=== PATIENT | male | born 1950 | race Caucasian/White ===

== ENCOUNTER 2018-01-06 13:44 | Emergency (ER) | payer OTHER, MEDICARE ==
[2018-01-06 13:51] VITALS: BP 140/95
--- NOTE | 2018-01-06 13:56 | EDPHY ---
H & P Time Seen by Provider: 01/06/18 13:54 HPI/ROS: CHIEF COMPLAINT: Left wrist pain HISTORY OF PRESENT ILLNESS: 67-year-old male here with his complaining of left wrist pain for the last 2 hr. He states that he was walking on the steps into the basement any slipped on the last couple steps and fell onto and an outstretched left arm. Denies any head injury, neck pain, shoulder or elbow pain he points to his distal radius as source of his pain. He has no prior injury to the wrist. She has tried no medication to alleviate his pain yet. Takes no blood thinners. ROS As detailed in HPI Smoking Status: Former smoker Physical Exam: General: Alert and oriented. Nontoxic appearing. No acute distress HEENT: Pupils PERRLA. No oral lesions. Cardiopulmonary: Regular rate and rhythm. No lower extremity edema Skin: [place] warm and dry. No lesions. Muscle skeletal: Moving all 4 extremities. Equal strength in upper extremities and lower extremities. Ambulatory. Full range of motion of the shoulder and elbow without pain. No deformity to the left wrist there is slight swelling and tenderness to the distal radius. No snuffbox tenderness. Neurovascular intact distal to the left wrist. Constitutional: Initial Vital Signs Heart Rate 75 01/06/18 13:49 Respiratory Rate 18 01/06/18 13:49 Blood Pressure 140/95 H 01/06/18 13:49 O2 Sat (%) 96 01/06/18 13:49 O2 Delivery Mode Room Air Allergies/Adverse Reactions: No Known Allergies Allergy (Unverified 01/06/18 13:51) Home Medications: Medication Instructions Recorded Hydrocodone/APAP 5/325 [[place] 1 - 2 tab PO Q6H PRN #12 tab 01/06/18 5/325 (*)] Lisinopril 01/06/18 Medical Decision Making - Diagnostics Imaging Results: Imaging Impressions Wrist X-Ray 01/06/18 13:54 Impression: 2 distal radial intra-articular fractures. If improved characterization of the distal radial articular surface is required, then consider noncontrast CT. Procedures: The patient placed in sugar-tong splint and family neurovascular intact after the splint placement. ED Course/Re-evaluation: 67-year-old male here with distal radius fracture with intra-articular communication. He is neurovascular intact in the he fracture is well aligned. He is placed in a splint and given orthopedic follow-up. Pain well controlled here but he was given a prescription for [place] for additional pain relief. Differential Diagnosis: Fracture, dislocation, scaphoid injury, compartment syndrome Departure - Departure Disposition: Home, Routine, Self-Care Clinical Impression: Distal radius fracture, left Condition: Good Instructions: Wrist Fracture in Adults (ED) Additional Instructions: He have a fracture to the radius bone in her wrist. It does involve the joint. He need follow-up with Orthopedics. He have provided with the number for the orthopedic surgeon on-call today. Please call them tomorrow morning for a follow-up early this week. Referrals: Ana Regan MD [Primary Care Provider] - As per Instructions Isreal Marshall MD [Medical Doctor] - As per Instructions Prescriptions: Hydrocodone/APAP 5/325 [[place] 5/325 (*)] 1 - 2 tab PO Q6H PRN #12 tab PRN Reason: Pain, Breakthrough
== END 2018-01-06 14:20 | disposition home or self-care (01) ==
PROC: 2W3DX1Z Immobilization of Left Lower Arm using Splint (ICD-10-PCS; principal; 2018-01-06)
DX: S52.572A Other intraarticular fracture of lower end of left radius, initial encounter for closed fracture (principal); W10.8XXA Fall (on) (from) other stairs and steps, initial encounter; Z87.891 Personal history of nicotine dependence

== ENCOUNTER 2018-07-18 16:57 | Observation (INO) | payer OTHER, MEDICARE ==
[2018-07-18] MEDS ORDERED: NS 1,000 ML IV ONE (17:32)
[2018-07-18] MEDS ORDERED: PROMETHAZINE HCL 25 MG/ML INJ IVP ONE (17:32)
[2018-07-18] MEDS ORDERED: PANTOPRAZOLE SODIUM 40 MG VIAL IVP ONE (18:54)
--- NOTE | 2018-07-18 18:59 | EDPHY ---
H & P Stated Complaint: c/o abd cramping/n/v/d x 7 days Time Seen by Provider: 07/18/18 17:05 HPI/ROS: CHIEF COMPLAINT: Nausea vomiting diarrhea x7 days with weight loss HISTORY OF PRESENT ILLNESS: This is a 67-year-old male presents emergency department reporting that he has had 7 days of "gastroenteritis". Patient states that 7 days ago he developed nausea, vomiting, and diarrhea. He has had weight loss and has been unable to eat solid foods or ensure or smoothies or vegetable soup. Reports that he has only been drinking water. Diarrhea is watery. No fever. No recent travels. No significant abdominal pain, but has been having intermittent episodes of crampy abdominal discomfort especially after eating or drinking. Reports some lightheadedness today. No fainting. Patient had a similar episode in 2014 where he was unable to tolerate solid foods for about 2 weeks, at that time he had endoscopy and colonoscopy demonstrating widespread ulcerations to the entire GI tract. Patient lost about 25 lb at that time. Patient also describes recurrent episode of vomiting and diarrhea which lasted multiple days 2 years ago. REVIEW OF SYSTEMS: A comprehensive 10 system review of systems was reviewed and is otherwise negative aside from elements mentioned in the history of present illness and medical decision making. PAST MEDICAL HISTORY: Recurrent episodes of prolonged nausea, vomiting, diarrhea. No surgical history. SOCIAL HISTORY: Nonsmoker. Drinks wine occasionally. No marijuana use. VITAL SIGNS Reviewed by me. GENERAL: Well-developed, well-nourished, resting comfortably in no respiratory distress. HEENT: Atraumatic. Eyes: No icterus, no injection. Mouth: moist mucous membranes. No erythema or lesions. Neck: supple with no adenopathy. LUNGS: Clear to auscultation bilaterally, no wheezes, rhonchi or rales. CARDIAC: Regular rate and rhythm, no rubs, murmurs or gallops. ABDOMEN: Soft, nontender, nondistended, bowel sounds normal. BACK: No CVA tenderness. EXTREMITIES: No trauma. No edema. Range of motion is normal throughout. NEURO: Alert and oriented, grossly nonfocal. SKIN: Warm and dry, no rash. PSYCHIATRIC: Normal mentation, no agitation. - Personal History Current Tetanus/Diphtheria Vaccine: Yes Current Tetanus Diphtheria and Acellular Pertussis (TDAP): Yes - Medical/Surgical History Hx Asthma: Yes Hx Chronic Respiratory Disease: No Hx Diabetes: No Hx Cardiac Disease: Yes Hx Renal Disease: Yes Hx Cirrhosis: Yes Hx Alcoholism: Yes Hx HIV/AIDS: Yes Hx Splenectomy or Spleen Trauma: Yes Other PMH: hypertension, orif L wrist, nasal surg, hernia repair x 2 - Social History Smoking Status: Former smoker Constitutional: Initial Vital Signs Temperature (C) 37.4 C 07/18/18 17:00 Heart Rate 95 07/18/18 17:00 Respiratory Rate 18 07/18/18 17:00 Blood Pressure 119/77 07/18/18 17:00 O2 Sat (%) 95 07/18/18 17:00 O2 Delivery Mode Room Air Allergies/Adverse Reactions: gluten Allergy (Severe, Verified 07/19/18 17:10) Vomiting Home Medications: Medication Instructions Recorded Lisinopril [Zestril 20 mg (*)] 20 mg PO DAILY 01/06/18 Ondansetron Odt [Zofran Odt 4 mg 4 mg PO TID PRN 07/18/18 (*)] Acetaminophen [Tylenol 325mg (*)] 650 mg PO Q4HRS PRN tab 07/20/18 predniSONE 40 mg PO DAILY tablet 07/20/18 Medical Decision Making ED Course/Re-evaluation: Patient had labs ordered as an outpatient prior to his arrival to [place] [address] with toxic granulations and giant platelets. Electrolytes demonstrate sodium of 132, normal BUN and creatinine, normal LFTs, albumin 2.5, normal lipase. Patient received a L of normal saline. Course was discussed with Dr. Urias. Patient will be admitted to the hospital to help facilitate early endoscopy as well as to further support his nutritional and fluid status. No diarrhea yet in the emergency department. Patient understands the stool samples needed. Differential Diagnosis: Differential diagnosis of the patient's nausea and vomiting and diarrhea with weight loss was considered including but not limited to gastroenteritis, gastritis, pancreatitis, inflammatory bowel disease. Consult/Admit Bed Type: Dr. Joshua Avila [facility] - Data Points Medications Given: Discontinued Medications Sodium Chloride (Ns) 1,000 mls @ 0 mls/hr IV EDNOW ONE; Wide Open PRN Reason: Protocol Stop: 07/18/18 17:33 Last Admin: 07/18/18 17:57 Dose: 1,000 mls Lactated Ringer's (Lr) 1,000 mls @ 25 mls/hr IV ONCALL ONE Stop: 07/21/18 00:16 Last Admin: 07/19/18 08:50 Dose: 1,000 mls Lisinopril (Zestril) 20 mg PO DAILY JOSE Stop: 01/15/19 08:59 Last Admin: 07/20/18 10:00 Dose: 20 mg Pantoprazole Sodium (Protonix) 40 mg IVP EDNOW ONE Stop: 07/18/18 18:55 Last Admin: 07/18/18 19:05 Dose: 40 mg Pantoprazole Sodium (Protonix) 40 mg IVP DAILY JOSE Stop: 01/15/19 08:59 Last Admin: 07/20/18 10:00 Dose: 40 mg Prednisone (Prednisone) 40 mg PO ONCE ONE Stop: 07/19/18 14:01 Last Admin: 07/19/18 13:56 Dose: 40 mg Prednisone (Prednisone) 40 mg PO DAILY JOSE Stop: 01/16/19 10:14 Last Admin: 07/20/18 10:42 Dose: 40 mg Promethazine HCl (Phenergan) 12.5 mg IVP EDNOW ONE Stop: 07/18/18 17:33 Last Admin: 07/18/18 17:57 Dose: 12.5 mg Departure - Departure Disposition: [facility] Clinical Impression: Vomiting and diarrhea, Weight loss Abdominal pain Qualifiers: Abdominal location: generalized Qualified Code(s): R10.84 - Generalized abdominal pain Condition: Good
[2018-07-18] MEDS ORDERED: ACETAMINOPHEN 325 MG TAB PO PRN (20:10)
[2018-07-18] MEDS ORDERED: ONDANSETRON DISINTEGRATING 4 MG TAB PO PRN (20:10)
[2018-07-18] MEDS ORDERED: ONDANSETRON 4 MG/2 ML VIAL IVP PRN (20:10)
--- NOTE | 2018-07-18 20:28 | PDGENHP ---
<Margaret Post - Last Filed: 07/18/18 21:09> History and Physical - Chief Complaint Nausea, vomiting, and diarrhea for 7 days - History of Present Illness This is a 67-year-old male with history of hypertension presenting to the emergency room due to a weeks worth of nausea, vomiting, and watery diarrhea which he has deemed is gastroenteritis. He also reports associated weight loss however did not weigh himself for the last week; weight loss is due to his inability to keep anything that he eats down. He is able to drink water. There is no difficulty swallowing, food does not get stuck in his throat, when food hits the bottom of his stomach he reports he has a 2 sec cramping sensation that resolves on its own. It is nonbloody vomiting and diarrhea. Denies fevers, chills, chest pain, palpitations. While living in [place] in 2014 he had the exact same symptoms; had an EGD and colonoscopy performed and showed widespread ulceration throughout his entire GI tract and he reports he lost 50 lb at that time. He was treated with prednisone. He initially believed it was to be a gluten intolerance however he was not diagnosed w/ celiac disease and led a gluten-free diet until 2 months ago where he had recurring symptoms to which he reports losing 25 lb. He sees test pilot Dr. Trey Lane. He is being admitted for further workup, treatment and monitoring. History Information - Allergies/Home Medication List Allergies/Adverse Reactions: No Known Allergies Allergy (Verified 07/18/18 17:04) Home Medications: Lisinopril [Zestril 20 mg (*)] 20 mg PO DAILY 01/06/18 [Last Taken 07/18/18] Ondansetron Odt [Zofran Odt 4 mg (*)] 4 mg PO TID PRN 07/18/18 [Last Taken Unknown] I have personally reviewed and updated: family history, medical history, social history, surgical history - Past Medical History DVT (), hypertension, pulmonary embolism (2014) - Surgical History Additional surgical history: ORIF of left wrist (December 2017), nasal surgery, hernia repair x2 - Family History Positive for: non-pertinent - Social History Smoking Status: Former smoker Alcohol Use: Occasionally (Drinks 1 glass of red wine a night) Drug Use: None Additional social history: Moved to [place] a year ago from [place]; he has retired as an environmental engineer scientist; he is . Review of Systems Review of Systems: ROS: 10pt was reviewed & negative except for what was stated in HPI & below Constitutional: Reports: other ("I just want to figure out what is going on") Physical Exam Physical Exam: Lab data and imaging reviewed. White blood cell count: 13.28 Hemoglobin hematocrit: 16.6 and 47.2 Platelet count: 407 Sodium: 132 Potassium: 3.8 Chloride: 97 Carbon dioxide: 25 BUN/Cr: 17/0.9 Lipase: 61 GI pathogen panel: Pending Temp Pulse Resp BP Pulse Ox 37.4 C 87 16 113/68 97 07/18/18 17:00 07/18/18 19:10 07/18/18 19:10 07/18/18 19:10 07/18/18 19:10 Constitutional: no apparent distress, appears nourished, not in pain Eyes: PERRL, anicteric sclera, EOMI Ears, Nose, Mouth, Throat: hearing normal, ears appear normal, no oral mucosal ulcers, oral thrush (Query thrush; reports his teeth feeling like it has a fuzzy film on the in the AM and his tongue appeared to have a film but reports eating crackers beforehand), dry mucous membranes Cardiovascular: regular rate and rhythym, no murmur, rub, or gallop, No edema Peripheral Pulses: 2+: dorsalis-pedis (R), dorsalis-pedis (L) Respiratory: no respiratory distress, no rales or rhonchi, clear to auscultation Gastrointestinal: normoactive bowel sounds, soft, non-tender abdomen, no palpable masses Genitourinary: no bladder fullness, no bladder tenderness Skin: warm, normal color, no rashes or abrasions, no fluctuance, no induration, No mottled Musculoskeletal: full muscle strength, no muscle tenderness, normal joint ROM, no joint effusions Neurologic: AAOx3, sensation intact bilaterally, CN II-XII Intact Psychiatric: interacting appropriately, not anxious, not encephalopathic, thought process linear Lymph, Heme, Immunologic: no cervical LAD, no supraclavicular LAD Lab Data & Imaging Review Lipase 61 IU/L (23-300) 07/18/18 17:17 Assessment & Plan Plan: 67-year-old male with history of hypertension, history of pulmonary embolism and deep vein thrombosis to right lower extremity in 2014 presents to the emergency room with 1 week worth of nausea, vomiting, and watery diarrhea; he has had very similar symptoms 2 times the 1st time being in 2015 to which he was found to have his entire GI tract with ulcerations and was treated with prednisone and resolved; the other time was [address] Trey Lane is his test pilot, I do not have his previous medical records indicating his GI history. His vital signs are the following, blood pressure 113/68, heart rate 87, respirations 16, temperature 37.4 degrees, oxygen saturation on room air is 97%. #Nausea, vomiting, diarrhea: I suspect recurrence ulcers given his presenting symptoms and past history he reports to me. He does not use aspirin or NSAIDs. He drinks 1 glass of red wine every night, he was a former cigarette smoker. He received Protonix in the emergency room and I will continue this tomorrow morning. Antiemetics p.r.n. GI pathogen panel is pending. GI has been consulted and I spoke to Dr. Urias who will perform an EGD tomorrow therefore he will be NPO tonight at midnight. Mild leukocytosis of 13.28; will retrieve white blood cell count in the morning. He is afebrile. #Weight loss: Reported by patient his normal weight is approximately 235 lb however he admits this to being overweight. In 2014 he lost 50 lb, 2 months ago he lost 25 lb and this time around he is unsure how many lb he lost but estimated to be 7 lb due to his poor p.o. Intake #Hypertension: Stable. He may continue lisinopril. #Query oral thrush: Uncertain whether thrush is present d/t pt reportedly eating crackers prior to evaluation however he did mention when he wakes up in the morning, he feels like his teeth have fuzzy film. He denies any foul taste in his mouth, sore throat, difficulty or pain swallowing. Reassess in AM and consider Nystatin swish if tongue film persists. Diet: Regular, NPO at midnight tonight VTE PPX: Low risk, SCDs Code status: Full Dispo: Admit to observation <Joshua Matthews - Last Filed: 07/18/18 21:45> History and Physical - History of Present Illness Review of Systems Review of Systems: Physical Exam Physical Exam: Temp Pulse Resp BP Pulse Ox 36.6 C 82 16 114/64 92 07/18/18 20:50 07/18/18 20:50 07/18/18 20:50 07/18/18 20:50 07/18/18 20:50 Lab Data & Imaging Review Lipase 61 IU/L (23-300) 07/18/18 17:17 Assessment & Plan Assessment: Abdominal pain (Acute) Vomiting and diarrhea (Acute) Weight loss (Acute) Plan: Patient seen and evaluated independently and care plan reviewed, agree with her assessment and plan as outlined above. Please see separate note for further details.
--- NOTE | 2018-07-18 21:30 | HOSPPROG ---
Hospitalist Progress Note Assessment/Plan: 67 yo M with PMH of HTN as well as recurrent issues with n/v presenting with n/ v inability to tolerate PO # n/v: patient reports that he has had these issues in the past, intially in 2014 and then again beginning 2 months ago. He is followed by Dr. Lane of GI as an OP. He notes that he has no dysphagia or odynophagia, no issues with liquids , but when he eats food it will go down and then shortly afterwards come up undigested. He states he had a w/u in [place] and there was concern for celiac that was never proven, and a capsule endoscopy revealed ulcerations throughout his entire small bowel that resolved with steroids--records from this hospitalization have been requested but do not currently have them. GI has plans for EGD in the am. Clear liquid diet for now, antiemetics as needed. Of note, when he was following a gluten free diet up until 2 months ago, he had no sxs, and they have recurred since then--he does have celiac panel currently pending. # constipation: patient describes having BM every other day, and occasional watery diarrhea, will monitor for now. GI pathogen panel ordered if diarrhea recurs. # weight loss: in setting of above # HTN: continue op meds # observation status Patient new to my care. Old records reviewed and summarized as above. Care plan reviewed with ER doctor and MELISSA Post as above, please see her separate H&P for further details. Objective: Vital Signs Temp Pulse Resp BP Pulse Ox 36.6 C 82 16 114/64 92 07/18/18 20:50 07/18/18 20:50 07/18/18 20:50 07/18/18 20:50 07/18/18 20:50 07/17/18 07/18/18 07/19/18 05:59 05:59 05:59 Intake Total 1000 Balance 1000 ICD10 Worksheet Patient Problems: Problems Problem Status Onset Abdominal pain Acute Vomiting and diarrhea Acute Weight loss Acute
[2018-07-19] MEDS ORDERED: LR 1,000 ML IV ONE (08:17)
--- NOTE | 2018-07-19 08:59 | PDANEPAE ---
ANE History of Present Illness N/V for EGD ANE Past Medical History - Cardiovascular History Hx Hypertension: Yes - Pulmonary History Hx COPD: No Hx Asthma/Reactive Airway Disease: Yes Hx Oxygen in Use at Home: No Hx Sleep Apnea: No - Endocrine History Hx Diabetes: No - Chronic Pain History Chronic Pain: No ANE Review of Systems Review of Systems: ANE Patient History - Allergies Allergies/Adverse Reactions: No Known Allergies Allergy (Verified 07/18/18 17:04) - Home Medications Home medications: home medication list seen and reviewed Home Medications: Lisinopril [Zestril 20 mg (*)] 20 mg PO DAILY 01/06/18 [Last Taken 07/18/18] Ondansetron Odt [Zofran Odt 4 mg (*)] 4 mg PO TID PRN 07/18/18 [Last Taken Unknown] - NPO status NPO Status: no food or drink >8 hours - Anes Hx Anes Hx: no prior problems - Smoking Hx Smoking Status: Former smoker - Alcohol Use Alcohol Use: Occasionally (Drinks 1 glass of red wine a night) ANE Labs/Vital Signs - Labs Result Diagrams: 07/19/18 04:45 - Vital Signs Blood Pressure: 98/61 Heart Rate: 83 Respiratory Rate: 16 O2 Sat (%): 92 Height: 195.58 cm Weight: 99.79 kg ANE Physical Exam - Airway Neck exam: FROM Mallampati Score: Class 2 Mouth exam: normal dental/mouth exam - Pulmonary Pulmonary: no respiratory distress - Cardiovascular Cardiovascular: regular rate and rhythym - ASA Status ASA Status: II ANE Anesthesia Plan Anesthesia Plan: MAC (IV GA)
[2018-07-19] MEDS ORDERED: LIDOCAINE 2% 2 ML INJ ONE (09:04)
[2018-07-19] MEDS ORDERED: PROPOFOL 200 MG/20 ML VIAL ONE ×2 (09:04)
[2018-07-19] MEDS ORDERED: NALOXONE HCL 0.4 MG/ML INJ IVP PRN (09:29)
[2018-07-19] MEDS ORDERED: ONDANSETRON 4 MG/2 ML VIAL IVP PRN (09:29)
--- NOTE | 2018-07-19 09:38 | POSTANESTH ---
Post Anesthetic Evaluation Cardiovascular Status: Similar to Pre-Op Cond Respiratory Status: Similar to Pre-op Cond. Level of Consciousness/Mental Status: Alert and Oriented Pain Control: Adequate, Prn Tx Ordered Nausea/Vomiting Control: Adequate, Prn Tx Ordered Complications Possibly Related to Anesthesia: None Noted
--- NOTE | 2018-07-19 10:43 | GIREPORT ---
[facility] Surgical Services - Endoscopy Department Patient Name: Jorge Pham Procedure Date: 07/19/2018 8:53 AM Patient Type: Inpatient Attending MD/ ER Physician: Brant Urias MD Procedure: Upper GI endoscopy Indications: Epigastric abdominal pain, Diarrhea, Nausea with vomiting Providers: Brnat Urias MD Referring MD: Ashley Ryan Medicines: Propofol per Anesthesia = IV general with spont resps Complications: No immediate complications. Estimated blood loss: Minimal. Description of Procedure: After obtaining informed consent, the endoscope was passed under direct vision. Throughout the procedure, the patient's blood pressure, pulse, and oxygen saturations were monitored continuously. The Colonoscope was introduced through the mouth, and advanced to the jejunum. The upper GI endoscopy was accomplished without difficulty. The patient tolerated th e procedure well. Findings: The examined esophagus was normal. A hiatal hernia was present. Patchy mildly erythematous mucosa without bleeding was found at the inc isura and in the gastric antrum. Biopsies were taken with a cold forceps for histology. Estimated blood loss was minimal. Diffuse moderate mucosal changes characterized by congestion, discolora tion, erythema, flattening and altered texture were found in the entire duode num. Biopsies were taken with a cold forceps for histology. Estimated blood loss was minimal. Scattered moderate mucosal changes characterized by congestion, discoloration, erythema and altered texture were found in the jejunum. Biopsies were taken with a cold forceps for histology. Estimated blood loss was minimal. The exam was otherwise without abnormality. Estimated Blood Loss: Estimated blood loss was minimal. Post Op Diagnosis: - Normal esophagus. - Hiatal hernia. - Erythematous mucosa in the incisura and antrum. Biopsied. - Mucosal changes in the duodenum. Biopsied. - Mucosal changes in the jejunum. Biopsied. - The examination was otherwise normal. Recommendation: - Await pathology results. - My office will call with the pathology result with 5-7 days. If you h ave not heard from my office by 12-14, do not assume the pathology is chester l, please call [phone] to get the pathology reults. - Perform a CT scan (computed tomography) of abdomen with contrast and pelvis with contrast today. - Use prednisone 40 mg PO once a day. - Full liquid diet. - Advance diet as tolerated. - Return patient to [facility] for ongoing care. - Thank you for allowing me to help in your patient's care. Do not hesi gupta to call with any questions. Attending Participation: I personally performed the entire procedure. Bridgett Lunsford M.D Brant Urias MD 07/19/2018 10:43:21 AM This report has been signed electronicallyMatthew MD Bridgett Number of Addenda: 0 Note Initiated On: 07/19/2018 8:53 AM [email or web address]
[2018-07-19] MEDS: LISINOPRIL 20 MG TAB PO SCH (11:10)
[2018-07-19] MEDS ORDERED: predniSONE 20 MG TAB PO ONE ×2 (11:29→14:00)
--- NOTE | 2018-07-19 12:07 | ASMTCMCOM ---
CM Note CM Note Notes: Pts case discussed w/ Heike Doss NP. Pt is having an EGD today. CM met w/ pt and introduced self. Pts had scheduled spinal surgery on 3N and going to [facility] today. Pt feels well supported and stated he didn't need any additional services. No therapies ordered at this time. CM available for changes. Plan: Independent Date Signed: 07/19/2018 12:06 PM Electronically Signed By:CHA Amin
[2018-07-19] MEDS ORDERED: IOPAMIDOL (ISOVUE-300) 100 ML BTL ONE (13:12)
[2018-07-19] MEDS: PANTOPRAZOLE SODIUM 40 MG VIAL IVP SCH (13:56)
--- NOTE | 2018-07-19 14:51 | HOSPPROG ---
Hospitalist Progress Note Assessment/Plan: 67 yo M with PMH of HTN as well as recurrent issues with n/v presenting with n/ v inability to tolerate PO. First encounter, chart reviewed. # n/v: -he has had these issues in the past -EGD this am -CT abd -followed by Dr. Lane of GI as an OP -prednisone daily -await GI recs -antiemetics as needed # constipation: -PCR negative -resolved # weight loss: in setting of above # HTN: continue op meds # observation status DC per GI recs Subjective: Feeling ok. No pain. Objective: Vital Signs Temp Pulse Resp BP Pulse Ox 36.5 C 81 18 111/68 96 07/19/18 10:16 07/19/18 10:16 07/19/18 10:16 07/19/18 10:16 07/19/18 10:16 Microbiology 07/19/18 03:41 Gastrointestinal Tract Panel (PCR) - Final Stool No Organism Detected By Pcr Laboratory Results 07/19/18 04:45 07/18/18 07/19/18 07/20/18 05:59 05:59 05:59 Intake Total 1000 350 Balance 1000 350 - Physical Exam Constitutional: not in pain, chronically ill appearing, cachectic Eyes: PERRL, anicteric sclera, EOMI Ears, Nose, Mouth, Throat: moist mucous membranes, hearing normal, ears appear normal Cardiovascular: regular rate and rhythym, No JVD, No edema Respiratory: no respiratory distress, no rales or rhonchi, reduced air movement Gastrointestinal: normoactive bowel sounds, No tenderness, No ascites Skin: warm, normal color, No mottled Musculoskeletal: normal joint ROM, no joint effusions, generalized weakness Neurologic: AAOx3 Psychiatric: interacting appropriately, not anxious, not encephalopathic ICD10 Worksheet Patient Problems: Problems Problem Status Onset Vomiting and diarrhea Acute Abdominal pain Acute Weight loss Acute
--- NOTE | 2018-07-19 16:27 | SOAPPROG ---
SABRA Progress Note Assessment/Plan: Assessment:Plan: see full dictated consult enteroscopy looks like celiac - path wont be ready til Sunday at earliest CT show ileum inflamed, doesn't seem to be reachable by colonoscope CT does not look like malignancy, ln's appear reactive I expect same process in prox sb as in ileum. IF path is not revealing I may send him to [facility] for double balloon enteroscopy very similar presentation to 2015, steroids were effective back then unclear if this is IBD, celiac or other etiology need all old data - will try to get via my office (he signed release of info before) if tolerating PO can go home tomorrow Brant Urias MD [phone] 07/19/18 16:23 Objective: Vital Signs Temp Pulse Resp BP Pulse Ox 36.5 C 81 18 111/68 96 07/19/18 10:16 07/19/18 10:16 07/19/18 10:16 07/19/18 10:16 07/19/18 10:16 Microbiology 07/19/18 03:41 Gastrointestinal Tract Panel (PCR) - Final Stool No Organism Detected By Pcr Laboratory Results 07/19/18 04:45 07/18/18 07/19/18 07/20/18 05:59 05:59 05:59 Intake Total 1000 350 Balance 1000 350 ICD10 Worksheet Patient Problems: Problems Problem Status Onset Abdominal pain Acute Vomiting and diarrhea Acute Weight loss Acute
[2018-07-20 07:02] VITALS: BP 120/72
--- NOTE | 2018-07-20 09:32 | SOAPPROG ---
SABRA Progress Note Assessment/Plan: Assessment: 67 year old with Small bowel disease/ulcerations, ? Refractory Sprue vs. Crohn' s Disease. Responding to steroids. Clinically improved tolerating gluten free diet, no recurrent diarrhea or abdominal pain. Plan: 1. Diet as tolerated, Gluten free. If tolerating can d/c home. 2. Patient responded to Prednisone 40 mg yesterday Would continue as an outpatient: Prednisone 40 mg daily and taper 40 mg x 7 day, 30 mg x 7 days, 20 mg x 7 days then 5 mg q 7 days until off 3. Await biopsy results. 4. Follow up with Dr. Urias and [facility] for Double Balloon enteroscopy if EGD biopsies are inconclusive. Will sign off. Please call with further questions. 07/20/18 09:36 Subjective: CC: Weight loss, abdominal pain and diarrhea. Patient s/p EGD with biopsies of duodenum and jejunum. Has responded to steroids. No pain, diarrhea and tolerating PO. Objective: Vital Signs Temp Pulse Resp BP Pulse Ox 36.6 C 77 16 120/72 94 07/20/18 07:01 07/20/18 07:01 07/20/18 07:01 07/20/18 07:01 07/20/18 07:01 Microbiology 07/19/18 03:41 Gastrointestinal Tract Panel (PCR) - Final Stool No Organism Detected By Pcr Laboratory Results 07/19/18 04:45 07/19/18 07/20/18 07/21/18 05:59 05:59 05:59 Intake Total 1000 350 Balance 1000 350 Generic Name Dose Route Start Last Admin Trade Name Freq PRN Reason Stop Dose Admin Acetaminophen 650 mg 07/18/18 20:10 Tylenol PO 01/14/19 20:09 Q4HRS PRN Pain, Mild/Fever, Can Take PO Lactated Ringer's 1,000 mls @ 25 mls/hr 07/19/18 08:17 07/19/18 08:50 Lr IV 07/21/18 00:16 1,000 mls ONCALL ONE Administration Lisinopril 20 mg 07/19/18 09:00 07/19/18 11:10 Zestril PO 01/15/19 08:59 Not Given DAILY JOSE Ondansetron HCl 4 mg 07/18/18 20:10 Zofran IVP 01/14/19 20:09 Q4HRS PRN Nausea/Vomiting, Can't Take PO Ondansetron HCl 4 mg 07/18/18 20:10 Zofran Odt PO 01/14/19 20:09 Q4HRS PRN Nausea/Vomiting, Use 1st Pantoprazole Sodium 40 mg 07/19/18 09:00 07/19/18 13:56 Protonix IVP 01/15/19 08:59 40 mg DAILY JOSE Administration Discontinued Medications Generic Name Dose Route Start Last Admin Trade Name Fresaba PRN Reason Stop Dose Admin Sodium Chloride 1,000 mls @ 0 mls/hr 07/18/18 17:32 07/18/18 17:57 Ns IV 07/18/18 17:33 1,000 mls EDNOW ONE Administration Protocol Wide Open Iopamidol Confirm 07/19/18 13:12 Isovue-300 Administered 07/19/18 13:13 Dose 100 ml .ROUTE .STK-MED ONE Lidocaine HCl Confirm 07/19/18 09:04 Lidocaine Hcl 2% Administered 07/19/18 09:05 Dose 2 ml .ROUTE .STK-MED ONE Naloxone HCl 0.1 mg 07/19/18 09:29 Narcan IVP 07/19/18 10:29 Q2M PRN PACU Resp Rate <10/min Ondansetron HCl 2 - 4 mg 07/19/18 09:29 Zofran IVP 07/19/18 10:29 Q10M PRN PACU, Nausea/Vomiting Pantoprazole Sodium 40 mg 07/18/18 18:54 07/18/18 19:05 Protonix IVP 07/18/18 18:55 40 mg EDNOW ONE Administration Prednisone 40 mg 07/19/18 14:00 07/19/18 13:56 Prednisone PO 07/19/18 14:01 40 mg ONCE ONE Administration Promethazine HCl 12.5 mg 07/18/18 17:32 07/18/18 17:57 Phenergan IVP 07/18/18 17:33 12.5 mg EDNOW ONE Administration Propofol Confirm 07/19/18 09:04 Diprivan Administered 07/19/18 09:05 Dose 200 mg .ROUTE .STK-MED ONE Propofol Confirm 07/19/18 09:04 Diprivan Administered 07/19/18 09:05 Dose 200 mg .ROUTE .STK-MED ONE Physical Exam - Physical Exam General Appearance: alert, no apparent distress Respiratory: lungs clear, normal breath sounds Cardiac/Chest: regular rate, rhythm Abdomen: normal bowel sounds, non-tender, soft Skin: normal color, warm/dry Neuro/Psych: alert, normal mood/affect, oriented x 3 ICD10 Worksheet Patient Problems: Problems Problem Status Onset Abdominal pain Acute Vomiting and diarrhea Acute Weight loss Acute
[2018-07-20] MEDS: LISINOPRIL 20 MG TAB PO SCH (10:00)
[2018-07-20] MEDS: PANTOPRAZOLE SODIUM 40 MG VIAL IVP SCH (10:00)
[2018-07-20] MEDS ORDERED: predniSONE 20 MG TAB PO SCH (10:15)
--- NOTE | 2018-07-20 11:36 | GDS ---
[f rep st] DISCHARGE SUMMARY DISCHARGE DIAGNOSES: 1. Abdominal pain. 2. Abnormal esophagogastroduodenoscopy. CONSULTATIONS: Gastroenterology. STUDIES AND PROCEDURES DONE: 1. EGD. 2. CT of the abdomen. PHYSICAL EXAM: GENERAL: The patient is alert. VITAL SIGNS: Afebrile at 36.6, pulse is 77, respira tory rate 16, blood pressure is 120/72, saturating 94% on room air. I have seen and evaluated the ivis beal on the day of discharge. HOSPITAL COURSE: patient is a 67-year-old male who presented to the emergency room with complaints o f abdominal pain. He was evaluated and diagnosed with: 1. Small-bowel disease: During this hospitalization he received a consultation from Gastroenterolog y. An EGD, as well as abdominal CT scan, were performed. The diagnosis is unclear. At the time of disposition he is responding well to prednisone taper and tolerating a gluten-free diet. He will con tinue in the outpatient setting with further evaluation and biopsy results. He will also continue pr ednisone taper at the time of disposition and follow up with Dr. Urias in the next week for further testing and evaluation. 2. Constipation: This has resolved. 3. Hypertension: His outpatient medications have been continued. 4. Nausea and vomiting: These have resolved, and he is tolerating a regular diet. DISPOSITION: The patient will be discharged home independently. Followup will be with Dr. Urias, a s well as a primary care physician in the outpatient setting. DISCHARGE MEDICATIONS: A prescription for prednisone taper has been provided at the time of disposit ion. /[id number]/MODL
--- NOTE | 2018-07-20 12:06 | GCON ---
[f rep st] CONSULTATION DATE OF CONSULTATION: 07/19/2018 REFERRING PHYSICIAN: Margaret Post MD INDICATION FOR CONSULTATION: Nausea, vomiting, dehydration, weight loss. HISTORY OF PRESENT ILLNESS: I have been asked by Dr. Post to see the patient in consultation for ch ief complaint of nausea, vomiting, diarrhea, and weight loss. He was seen in the office by my partne r, Dr. Lane, on July 02 with the same type of symptoms. These symptoms started in April of this year with nausea, vomiting, inability to keep food down, and diarrhea. In over 2 weeks he lost 25 p ounds. Symptoms resolved and then recurred again significantly on Good Sunday. He had malaise, cram ping, exhaustion, nausea, vomiting. He was not able to keep food down and anytime he ate something i t would worsen his symptoms. His symptoms were improved if he was supine. He has intermittent loose stools, small amounts, not containing any blood. He has continued to lose weight. Interestingly, danny mariano had a very similar episode 4 years ago when he was in [place] and 3 years prior to that. In [place], he went under an extensive evaluation, which included colonoscopy, enteroscopy, capsule e ndoscopy, CT scan and eventually double-balloon enteroscopy at [facility]. His colonoscopy did reveal tubulovillous adenoma in addition to focal active colitis. On his enteroscopy, there were du odenal bulb ulcers as well as jejunal ulcers, and a biopsy showed villous atrophy with increased leuk ocytes and celiac sprue serologies were negative by report. A CT scan at that point showed wall thic kening of multiple small bowel loops and some mesenteric lymphadenopathy. Capsule endoscopy in 2014 showed atrophic-appearing duodenum with ptosis, scattered ulcerations in jejunum and ileu m, and an ulcerated lesion at distal ileum. Reportedly, his double-balloon enteroscopy performed at the [facility] at the end of April or early May of 2014 was normal. He had resolution of his symptoms over time with the use of prednisone and was well up until recently as noted in the HPI. He has been on a gluten-free diet for years since these events happened in 2014. He is now admitte d for the above and I am called to help and evaluate . PAST MEDICAL HISTORY: History of intestinal issues as noted above, hypertension. During the events back in 2014, he reported he also had a DVT and a PE. PAST SURGICAL HISTORY: Includes deviated septum and ORIF of his left wrist. He has also had bilater al hernia repairs. MEDICATIONS: At home include lisinopril and albuterol. ALLERGIES: No known drug allergies. SOCIAL HISTORY: He does not smoke cigarettes. He drinks 1 to 2 glasses of wine daily. FAMILY HISTORY: No colon cancer to his knowledge, he is not sure about colon polyps, and brother rep ortedly has celiac disease. REVIEW OF SYSTEMS: A complete review of systems was performed and is negative other than noted in th e HPI. His pertinent negatives include no chest pain, palpitations, diaphoresis. No fevers, chills, sweats. No hematemesis. No overt blood loss. PHYSICAL EXAM: GENERAL: Well-developed, well-nourished male sitting in his bed, in no acute distres s. VITAL SIGNS: Blood pressure is 120/71, pulse is 83, respirations 16. He is 96% on room air. Te mperature is 36.9. EYES: Anicteric. NANCY, EOMI. MOUTH: No lesions. Moist membranes. NECK: Sup ple. Full range of motion. No JVD. BACK: No spine tenderness. No CVA tenderness. LUNGS: Clear. CARDIAC: S1, S2. Regular rate and rhythm. No murmurs, rubs or gallops appreciated. ABDOMEN: Mustapha wel sounds are normal in pitch and frequency, and is soft with minimal discomfort on deep palpation. No rebound, no guarding, no hepatosplenomegaly. EXTREMITIES: No cyanosis, clubbing, or edema. DAYANA ROLOGIC: Cranial nerves intact, nonfocal. Alert, oriented x3. SKIN: No stigmata of advanced liver diseases, no rashes. LABORATORY DATA: From July 18: WBC 13.28, hemoglobin 16.6, hematocrit 47.2, platelet count 407. Sodium 132, potassium 3.8, chloride 97, bicarb 25, BUN 17, creatinine 0.9, glucose 113, calcium 8.3, bilirubin 0.7, AST 37, ALT 58, alk phos50, total protein 4.9, albumin 2.9. Laboratory data from November 22, 2017: Total protein was 6.6 and albumin was 3.9. Stool data from May 13, 2018: Stool ova and parasites: None seen. Laboratory data from July 16: Tissue transglutaminase antibody less than 1.2. Serum IgA pending. Celiac gene pending. Stool PCR from May 13, 2018: No organisms detected. IMAGING STUDIES: 1. Old endoscopic and imaging studies of note: This is only from a previous office visit in [place] . I do not have the actual reports. 2. Colonoscopy April 26, 2014: Rectal polyp: Tubulovillous adenoma. Polyp at right colon: Cecu m biopsy just focal active colitis, hyperplastic polyp. Normal terminal ileum. Biopsies: Increased intraepithelial lymphocytes and lamina propria chronic inflammatory infiltrate. Poor prep in right colon. 3. Enteroscopy April 26, 2014: Hiatal hernia, gastritis. Gastric biopsy negative. Duodenal bulb ulcers. Duodenal bulb biopsy showed crypt villous atrophy with increased lamina propria leukocytes. Jejunal and duodenal biopsies similar suggestive of celiac disease. 4. CT of the abdomen and pelvis April 26, 2014: Wall thickening of multiple small bowel loops. M ultiple mesenteric lymph nodes. 5. Capsule endoscopy May 08, 2014: Atrophic-appearing duodenal mucosa, scattered ulcerations i n jejunum and ileum, ulcerated lesion at distal jejunum. ASSESSMENT: 1. Nausea, vomiting. 2. Diarrhea. 3. Weight loss. 4. History of abnormal endoscopy, CT scans, and capsule endoscopy, reportedly with a normal double-b alloon enteroscopy following treatment with steroids. 5. Hypertension. RECOMMENDATIONS: 1. Proceed with enteroscopy today and small bowel biopsies. 2. After enteroscopy, likely we will order an abdominopelvic CT scan with oral and IV contrast. 3. Start prednisone 40 mg a day. 4. After the above enteroscopy, advance diet as tolerated. 5. Followup celiac serologies. 6. Further recommendations Following results of above and clinical course. I suspect this is some form of celiac disease given the previous workup. However, inflammatory bowel disease or other processes, such as vasculitis, may be responsible for his previous small bowel ulce rations. He had a complete resolution with treatment of prednisone and has been asymptomatic until t he above issue. I suspect he will respond again to steroids, although I am not sure the etiology of his symptoms. Thank you for allowing me to participate in your patient's health care. Do not hesitate to call me w ith any questions. Copy requested to: Ashley Rivera MD /[id number]/MODL
== END 2018-07-20 10:45 | disposition home or self-care (01) ==
LOC: F3E 20:19
PROVIDERS: ADMIT Nurse Practitioner; ATTEND Internal Medicine Gastroenterology
PROC: 0DBA8ZX Excision of Jejunum, Via Natural or Artificial Opening Endoscopic, Diagnostic (ICD-10-PCS; principal; 2018-07-18)
PROC: 0DB98ZX Excision of Duodenum, Via Natural or Artificial Opening Endoscopic, Diagnostic (ICD-10-PCS; principal; 2018-07-18)
PROC: 0DB68ZX Excision of Stomach, Via Natural or Artificial Opening Endoscopic, Diagnostic (ICD-10-PCS; principal; 2018-07-18)
DX: R11.2 Nausea with vomiting, unspecified (principal); R10.84 Generalized abdominal pain; E86.0 Dehydration; R63.4 Abnormal weight loss; I10 Essential (primary) hypertension; Z86.711 Personal history of pulmonary embolism; Z86.718 Personal history of other venous thrombosis and embolism; Z86.010 Personal history of colon polyps; Z87.891 Personal history of nicotine dependence
CPT/HCPCS: 43239; 74177; 96361; 96374; 96375; 96376; 99285; G0378; J2550; J2704; J7512; Q9967